=== PATIENT | male | born 1995 | race Caucasian/White ===

== ENCOUNTER 2019-09-17 23:20 | Emergency (ER) | payer OTHER ==
[2019-09-17 23:33] VITALS: TEMP 97.9
--- NOTE | 2019-09-17 23:59 | ED ---
Chest Pain HPI - General Chief Complaint: Chest Pain Stated Complaint: Chest Pain Time Seen by Provider: 09/17/19 23:37 Source: patient Mode of arrival: ambulatory Limitations: no limitations - History of Present Illness Initial Comments: This patient is 23-year-old male history of asthma who states that he has been having some intermittent left-sided chest pain that he describes as aching and burning going on for number days to weeks. He also has had a bit of nonproductive cough and feels like his asthma may have been flaring up little. 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 No diaphoresis, nausea or vomiting, palpitations, lightheadedness or syncope. MD Complaint: chest pain -: days(s) Onset: during rest Pain Location: left chest Pain Radiation: back Severity: moderate Quality: aching, other (Burning) Consistency: constant Improves With: nothing Worsens With: movement Other Symptoms: cough Treatments Prior to Arrival: none - Related Data Previous Rx's Medication Instructions Recorded Dicyclomine [Bentyl] 20 mg PO QID #24 tablet 10/23/15 Famotidine [Pepcid] 20 mg PO BID #30 tablet 10/23/15 Ibuprofen [Motrin] 600 mg PO Q8HR PRN #20 tab 09/18/19 predniSONE [Deltasone] 20 mg PO BID #8 tab 09/18/19 Allergies Allergy/AdvReac Type Severity Reaction Status Date / Time No Known Allergies Allergy Verified 09/17/19 23:33 Review of Systems ROS Statement: Those systems with pertinent positive or pertinent negative responses have been documented in the HPI. ROS Other: All systems not noted in ROS Statement are negative. Constitutional: Denies: fever, chills, weakness Respiratory: Reports: cough, dyspnea, wheezes. Denies: hemoptysis Cardiovascular: Reports: chest pain. Denies: palpitations, orthopnea, edema, syncope Gastrointestinal: Denies: abdominal pain, nausea, vomiting, diarrhea Genitourinary: Denies: dysuria, hematuria Musculoskeletal: Denies: back pain Skin: Denies: rash Neurological: Denies: headache EKG Findings - EKG Results: EKG: interpreted by FAUSTINO, WNL, sinus rhythm (Rate 65 bpm), normal axis, normal QRS, normal ST/T, no acute changes - NC, Pacemaker, Normal: Normal tracing: normal tracing Past Medical History Past Medical History: Asthma History of Any Multi-Drug Resistant Organisms: None Reported Past Surgical History: Adenoidectomy Past Psychological History: No Psychological Hx Reported Smoking Status: Current some day smoker Past Alcohol Use History: Occasional Past Drug Use History: None Reported General Exam Limitations: no limitations General appearance: alert, in no apparent distress Head exam: Present: atraumatic, normocephalic Eye exam: Present: normal appearance. Absent: scleral icterus, conjunctival injection Respiratory exam: Present: wheezes. Absent: respiratory distress, rales, rhonchi, stridor, chest wall tenderness, accessory muscle use, decreased breath sounds, prolonged expiratory Cardiovascular Exam: Present: regular rate, normal rhythm, normal heart sounds. Absent: systolic murmur, diastolic murmur, rubs, gallop GI/Abdominal exam: Present: soft. Absent: distended, tenderness, guarding, rebound, rigid Extremities exam: Present: normal capillary refill. Absent: pedal edema, calf tenderness Neurological exam: Present: alert Skin exam: Present: warm, dry, intact, normal color. Absent: rash Course Vital Signs 09/17/19 09/18/19 23:29 00:33 Temperature 97.9 F Pulse Rate 69 Respiratory 19 18 Rate Blood Pressure 125/72 O2 Sat by Pulse 98 Oximetry Disposition Clinical Impression: Chest pain, Asthma exacerbation Disposition: HOME SELF-CARE Condition: Good Instructions (If sedation given, give patient instructions): Chest Pain (ED), Asthma (DC) Prescriptions: predniSONE [Deltasone] 20 mg PO BID #8 tab Ibuprofen [Motrin] 600 mg PO Q8HR PRN #20 tab PRN Reason: Pain Is patient prescribed a controlled substance at d/c from ED?: No Referrals: None,Stated [Primary Care Provider] - 1-2 days
--- NOTE | 2019-09-18 00:23 | XR ---
EXAMINATION TYPE: XR chest 2V DATE OF EXAM: 09/18/2019 COMPARISON: NONE HISTORY: Left sided chest pain TECHNIQUE: 2 views FINDINGS: Heart and mediastinum are normal. Lungs are clear. Diaphragm is normal. Bony thorax appears normal. Pulmonary vascularity is normal. There is no sign of pneumothorax. IMPRESSION: Normal chest.
[2019-09-18] MEDS ORDERED: IBUPROFEN 400 MG TAB PO STA (01:26)
[2019-09-18] MEDS ORDERED: predniSONE 20 MG TAB PO STA (01:26)
[2019-09-18] MEDS ORDERED: ALBUTEROL NEBULIZED 2.5 MG/3 ML INHALATION STA (01:26)
[2019-09-18 02:39] VITALS: BP 131/80; PULSE 74; RESP 20
== END 2019-09-18 02:39 | disposition home or self-care (01) ==
LOC: EC 23:20
DX: J45.901 Unspecified asthma with (acute) exacerbation (principal); R07.9 Chest pain, unspecified; F17.200 Nicotine dependence, unspecified, uncomplicated
CPT/HCPCS: 94640; 93005; 71046; 99285; J7512

== ENCOUNTER 2020-01-15 09:07 | Emergency (ER) | payer OTHER ==
[2020-01-15 09:10] VITALS: TEMP 98.4
[2020-01-15] MEDS ORDERED: diphenhydrAMINE 50 MG/ML 1 ML VIAL IVP STA (09:24)
[2020-01-15] MEDS ORDERED: KETOROLAC 15 MG/ML 1 ML VIAL IVP STA (09:24)
[2020-01-15] MEDS ORDERED: SODIUM CHLORIDE 0.9% 500 ML 500 ML IV ONE (09:25)
[2020-01-15] MEDS ORDERED: ONDANSETRON 4 MG/2 ML VIAL IVP STA (09:25)
--- NOTE | 2020-01-15 09:35 | ED ---
Headache HPI - General Chief Complaint: Headache Stated Complaint: Headache Time Seen by Provider: 01/15/20 09:14 Mode of arrival: ambulatory Limitations: no limitations - History of Present Illness Initial Comments: 24-year-old male with history of headache. Patient states that he has history of migraines and that everyone in his immediate famiyl struggles with them as well- he denies family history of aneurysm. Patient states that usually his headaches go away after a day but this one has been ongoing for the past 2 days. Patient states he woke up with it yesterday. He states it started in the back of head migrating forward. Denies fevers, photophobia, nausea, vomiting, visual changes, denies weakness, sensation deficits. Patient states it feel somewhat similar to his previous symptoms. Patient denies additional complaints. Upon arrival he appears well nontoxic. Last CT 10/02/19 without acute findings. - Related Data Home Medications Medication Instructions Recorded Confirmed Albuterol Sulfate [Ventolin HFA] 2 puff INHALATION RT-QID PRN 10/02/19 01/15/20 Umeclidinium [place] [Incruse 1 puff INHALATION RT-DAILY 10/02/19 01/15/20 Ellipta] Ibuprofen [Motrin Ib] 600 mg PO Q8H PRN 01/15/20 01/15/20 Allergies Allergy/AdvReac Type Severity Reaction Status Date / Time No Known Allergies Allergy Verified 01/15/20 09:31 Review of Systems ROS Statement: Those systems with pertinent positive or pertinent negative responses have been documented in the HPI. ROS Other: All systems not noted in ROS Statement are negative. Past Medical History Past Medical History: Asthma History of Any Multi-Drug Resistant Organisms: None Reported Past Surgical History: Adenoidectomy Past Psychological History: No Psychological Hx Reported Smoking Status: Current some day smoker Past Alcohol Use History: Occasional Past Drug Use History: None Reported General Exam - General Exam Comments Initial Comments: General: The patient is awake and alert, in no distress Eye: +3 m pupils are equal, round and reactive to light, extra-ocular movements are intact. No nystagmus. There is normal conjunctiva bilaterally. No signs of icterus. Ears, nose, mouth and throat: There are moist mucous membranes and no oral lesions. Neck: The neck is supple, there is no tenderness or JVD. No nuchal rigidity Cardiovascular: There is a regular rate and rhythm. No murmur, rub or gallop is appreciated. Respiratory: Lungs are clear to auscultation, respirations are non-labored, breath sounds are equal. No wheezes, stridor, rales, or rhonchi. Gastrointestinal: Soft, non-distended, non-tender abdomen without masses or organomegaly noted. There is no rebound or guarding present. Musculoskeletal: Normal ROM, no tenderness. Strength 5/5. Sensation intact. Pulses equal bilaterally 2+. Neurological: A&O x 3. CN II-XII intact ,memory intact to immediately, intermediate and detention recall. Able to follow simple verbal. Able to name a common object (phone). High quality, labial (pa) and lingual (la) speech. Low quality posterior pharynx/larynx (ga) voice sounds. Able to express general knowledge (days in a week). No hemineglect or inattention noted. Finger agnosia (-) and spatially oriented (identified L index finger touched R shoulder with L index finger). Light touch sensation present over the face, chest, abdomen, back, UE bilaterally, and LE bilaterally. Able to localize point during point localization b/l and extinction. No visible bulk atrophy, hypertrophy, fasciculations, or myoclonus of the UE or LE b/l. Full PROM in UE and LE b/l. Bilateral muscle strength 5/5 for the following muscles: deltoid, biceps, triceps, brachioradialis, wrist extensors/flexor, hip flexor, hip abductors/adductors, hamstrings, quadriceps, feet dorsiflexors/plantar flexors. Finger to nose, finger to the examiners finger, and heel to angel coordinated and accurate b/l. Coordinated and even demonstration of hand flip, finger to thumb, and toe tap b/l. (-) primitive reflexes. Gait is coordinated and even in stride. Maintains balance with monopedal stance. Skin: Skin is warm and dry and no rashes or lesions are noted. Psychiatric: Cooperative, appropriate mood & affect, normal judgment. Limitations: no limitations Course Vital Signs 01/15/20 09:08 Temperature 98.4 F Pulse Rate 91 Respiratory 20 Rate Blood Pressure 147/85 O2 Sat by Pulse 100 Oximetry Medical Decision Making - Medical Decision Making 24-year-old with history of chronic migraines recent negative CT in September 2019. Presenting for headache. Patient states is similar to characteristic with his u sual increased duration No focal neurological deficits. No 7 onset. Patient states that his headache is now a 1-2 out of 10 significant improvement from 8 out of 10 when he initially arrived. At this time I feel patient still for discharge with outpatient primary for follow-up with outpatient MRI. Dr Bowen agreeable to care plan. Disposition Clinical Impression: Headache Disposition: HOME SELF-CARE Condition: Good Instructions (If sedation given, give patient instructions): Acute Headache (ED) Additional Instructions: Please use medication as discussed. Please follow-up with family doctor in the next 2 days. Please return to emergency room if the symptoms increase or worsen or for any other concerns. Is patient prescribed a controlled substance at d/c from ED?: No Referrals: Tahir Gaitan MD [Primary Care Provider] - 1-2 days Time of Disposition: 10:42
[2020-01-15 11:09] VITALS: BP 140/76; PULSE 87; RESP 18
== END 2020-01-15 11:08 | disposition home or self-care (01) ==
LOC: EC 09:07
DX: R51.9 Headache, unspecified (principal); J45.909 Unspecified asthma, uncomplicated; F17.200 Nicotine dependence, unspecified, uncomplicated
CPT/HCPCS: 99283; 96374; 96375 ×2; 96361; J1200; J2405; J1885